=== PATIENT | female | born 1960 | race Caucasian/White ===

== ENCOUNTER 2020-10-11 11:20 | Emergency (ER) | payer OTHER ==
[2020-10-11 11:35] VITALS: TEMP 97.7; BMI 28.3
[2020-10-11] MEDS ORDERED: KETOROLAC TROMETHAMINE 60 MG/2 ML VIAL IM ONE (12:09)
[2020-10-11] MEDS ORDERED: KETOROLAC TROMETHAMINE 60 MG/2 ML VIAL ONE (12:14)
[2020-10-11 14:02] VITALS: BP 145/58; PULSE 70
== END 2020-10-11 14:07 | disposition home or self-care (01) ==
LOC: JER 11:20
PROC: 3E0233Z Introduction of Anti-inflammatory into Muscle, Percutaneous Approach (ICD-10-PCS; principal; 2020-10-11)
DX: M25.551 Pain in right hip (principal)
CPT/HCPCS: 73523-TC-FY; 99284-25